=== PATIENT | female | born 1950 | race Caucasian/White ===

== ENCOUNTER 2017-03-22 08:57 | Emergency (ER) | payer MEDICARE ==
[~2017-03-22] VITALS: Ht 167.6 cm; Wt 72.8 kg
[~2017-03-22 08:57] MED LIST: EPIP0.3I IM; FURO1TAB62 PO; SPIR50TA PO; VENTAER INH; [UNRECOGNIZED DRUG - CODE] PO
[2017-03-22 09:02] VITALS: BP 123/77; PULSE 63; RESP 16; TEMP 98.4; O2SAT 98
[2017-03-22] MEDS ORDERED: FURO20TA PO (09:13)
[2017-03-22] MEDS ORDERED: BACT800T5 PO (09:16)
[2017-03-22] MEDS ORDERED: VIST50CA PO (09:16)
[2017-03-22] MEDS ORDERED: IBUP800T23 PO (09:16)
--- NOTE | 2017-03-22 09:17 | PD ---
HPI . Right hand swelling Chief Complaint: Skin Problem Time Seen by Provider: 09:07 Travel History International Travel<30 days: No Contact w/Intl Traveler<30days: No Traveled to known affect area: No History of Present Illness HPI Patient presents with a 2 day history of right hand swelling. She states that she was bitten by an unknown insect 2 days ago. She reports itching and swelling which have been getting progressively worse since that time. She is now complaining with some soreness in her hand. She states that her hand feels hot. Her symptoms are exacerbated by movement. Pain is rated as a 6. She has treated it with ice and with a topical anti-itch spray. She does not note any relief with this treatment. PFSH Past Medical History Arthritis: Yes (knees) Blood Disorders: No Anxiety: Yes Cancer: No Cardiovascular Problems: No High Cholesterol: Yes Cirrhosis: Yes Diabetes: No Diminished Hearing: No Endocrine: No Gastrointestinal Disorders: Yes (BENIGN VILLOUS ADENOMA SM BOWEL. CIRRHOSIS, ASCITES. HEMORRHOIDS. ) Genitourinary: No Hepatitis: No Hiatal Hernia: No Hypertension: No Immune Disorder: No Implanted Vascular Access Dvce: No Musculoskeletal: No Neurologic: Yes (MIGRAINES. HAD ONE SEIZURE 2 YEARS AGO. IDIOPATHIC.) Psychiatric: Yes (ANXIETY DISORDER) Reproductive: No Respiratory: No Immunizations Current: Yes Migraines: Yes Seizures: Yes (HX OF SEIZURE ) Thyroid Disease: No ?: Not LMP: MENOPAUSAL Menopausal: Yes Past Surgical History Abdominal Surgery: Yes (ABDOMINAL SURGERY TO REMOVE VILLOUS ADENOMA, SMALL BOWEL RESECTION) AICD: No Cardiac Surgery: No Ear Surgery: No Endocrine Surgery: No Eye Surgery: No Genitourinary Surgery: No Gynecologic Surgery: No Joint Replacement: No Neurologic Surgery: No Oral Surgery: No Pacemaker: No Thoracic Surgery: No Other Surgery: Yes Social History Alcohol Use: No Tobacco Use: No Substance Use: No Allergies-Medications (Allergen,Severity, Reaction): Coded Allergies: Yellow Hornet (Verified Allergy, Severe, Anaphylaxis, 03/22/17) Reported Meds & Prescriptions Reported Meds & Active Scripts Active Epipen 2-Neri Inj (Epinephrine) 0.3 Mg/0.3 Ml Pfpen 0.3 Mg IM ONCE PRN Ventolin Hfa 18 GM Inh (Albuterol Sulfate) 90 Mcg/Act Aer 2 Puff INH Q4-6H PRN Lasix (Furosemide) 20 Mg Tab 2 Tab PO BID Spironolactone 50 Mg Tab 2 Tab PO BIDPC Hydrocodone-Ibuprofen 5-200 Mg Tab 1 Tab PO Q6HR PRN Review of Systems Except as stated in HPI: all other systems reviewed are Neg General / Constitutional: No: Fever, Chills Musculoskeletal: Positive: Edema Skin: Positive Change in Pigmentation Physical Exam Narrative GENERAL: Awake and alert and in no acute distress. SKIN: Warm and dry. Redness, warmth and swelling of the right hand mainly in the webspace between the thumb and index finger. No fluctuance. HEAD: Atraumatic. Normocephalic. EYES: Pupils equal and round. NECK: Trachea midline. CARDIOVASCULAR: Regular rate and rhythm. RESPIRATORY: No accessory muscle use. MUSCULOSKELETAL: No obvious deformities. No edema. NEUROLOGICAL: Awake and alert. No obvious cranial nerve deficits. Motor grossly within normal limits. Normal speech. PSYCHIATRIC: Appropriate mood and affect; insight and judgment normal. Data Data Last Documented VS Vital Signs Date Time Temp Pulse Resp B/P Pulse Ox O2 Delivery O2 Flow Rate FiO2 03/22/17 09:02 98.4 63 16 123/77 98 MDM Medical Decision Making Medical Screen Exam Complete: Yes Emergency Medical Condition: Yes Differential Diagnosis My differential diagnosis includes but is not limited to localized wound infection, cellulitis, abscess Narrative Course Patient presents with swelling, itching, redness and warmth of her right hand following an insect bite. This is probably simply a localized reaction. However, cellulitis must be considered. I will cover her for both with Vistaril , Motrin and Septra. Diagnosis Primary Impression: Cellulitis of hand, right Additional Impression: Local reaction to insect sting Qualified Code: T63.481A - Local reaction to insect sting, accidental or unintentional, initial encounter Patient Instructions: Cellulitis (DC), General Instructions, Insect Bite or Sting (DC), RICE Therapy (ED) Med/Other Pt SpecificInfo: Prescription(s) given Scripts Ibuprofen 800 Mg [id number] Mg PO Q8H PRN (Pain/Inflammation) #60 TAB Ref 0 Prov:Laure Valentino MD 03/22/17 Hydroxyzine Pamoate (Vistaril)50 Mg Cap50 Mg PO QID PRN (swelling) #30 CAP Ref 0 Prov:Laure Valentino MD 03/22/17 Sulfamethoxazole-Trimethoprim (Bactrim DS)800-160 Mg Tab1 Tab PO BID #20 TAB Ref 0 Prov:Laure Valentino MD 03/22/17 Disposition: 01 DISCHARGE HOME Condition: Stable Laure Valentino MD March 22, 2017 09:17
[2017-03-26] MEDS ORDERED: [UNRECOGNIZED DRUG - CODE] PO (14:29)
== END 2017-03-22 09:33 | disposition home or self-care (01) ==
LOC: PHED 08:57
DX: L03.113 Cellulitis of right upper limb (principal); T63.481A Toxic effect of venom of other arthropod, accidental (unintentional), initial encounter; W57.XXXA Bitten or stung by nonvenomous insect and other nonvenomous arthropods, initial encounter
CPT/HCPCS: 99284